=== PATIENT | male | born 1965 | race African-American/Black ===

== ENCOUNTER 2020-12-04 15:56 | Emergency (ER) | payer SELFPAY ==
[2020-12-04] MEDS ORDERED: cefTRIAXone\\ROCEPHIN 1 GM VIAL ONE (16:22)
[2020-12-04 16:31] LABS: Bilirubin Small (Negative); Blood, Urine Moderate (Negative); Glucose, Urine (Dipstick) Negative (Negative); Ketone, Urine Trace mg/dL (Negative); Leukocyte Negative (Negative); Nitrite Negative (Negative); Protein, Urine (Dipstick) Trace mg/dL (Neg-Trace); Specific Gravity, Urine 1.025 (1.005-1.030)
[2020-12-04 16:32] LABS: Clarity Slightly Cloudy (Clear)
[2020-12-04 16:35] LABS: Bacteria/HPF 2+ HPF (None Seen); Mucous/LPF 2+ LPF (<2+); Squamous Epithelial 0-3 HPF (0-3); WBC/HPF 0-3 HPF (0-3)
[2020-12-05 21:32] LABS: Chlam.trachomatis by PCR,Urine Not Detected (NotDetected)
== END 2020-12-04 16:27 | disposition home or self-care (01) ==
LOC: BURERS 15:56
DX: R30.0 Dysuria (principal); F17.200 Nicotine dependence, unspecified, uncomplicated
CPT/HCPCS: 81003; 81015; 87086; 87491; 87591; 96372; 99283; J0696

== ENCOUNTER 2022-05-03 14:20 | Emergency (ER) | payer SELFPAY | END 2022-05-03 14:46 | disposition home or self-care (01) | LOC: BURERS 14:20 | DX: R09.81 Nasal congestion (principal); H92.02 Otalgia, left ear; I10 Essential (primary) hypertension; F17.200 Nicotine dependence, unspecified, uncomplicated | CPT/HCPCS: 99283 ==